=== PATIENT | male | born 1995 | race Caucasian/White ===

== ENCOUNTER 2023-10-14 21:05 | Emergency (ER) | payer MEDICAID, OTHER ==
[~2023-10-14] VITALS: Ht 170.2 cm; Wt 59.4 kg
[2023-10-14] MEDS ORDERED: AMOX-427 PO (22:50)
[2023-10-14] MEDS: AMOXICILLIN-CLAVUL 500-125MG TABLET PO ONE (22:55)
[2023-10-14] MEDS ORDERED: AMOXICILLIN-CLAVUL 500-125MG TABLET ONE (22:58)
[2023-10-14 23:20] VITALS: BP 122/70; TEMP 98; O2SAT 98
== END 2023-10-14 23:21 | disposition home or self-care (01) ==
LOC: ER 21:09
DX: L60.0 Ingrowing nail (principal); Z79.899 Other long term (current) drug therapy
CPT/HCPCS: A4606; A4663

== ENCOUNTER 2023-12-01 12:19 | Emergency (ER) | payer OTHER ==
[~2023-12-01] VITALS: Ht 172.7 cm; Wt 59.0 kg
[~2023-12-01 12:19] MED LIST: AMOX-427 PO
[2023-12-01 12:33] VITALS: O2SAT 100
[2023-12-01] MEDS ORDERED: SULF1TAB48 PO (12:59)
[2023-12-01] MEDS ORDERED: SULFAMETH/TRIMETH 800/160 MG TABLET ONE (13:01)
[2023-12-01] MEDS: SULFAMETH/TRIMETH 800/160 MG TABLET PO ONE (13:06)
== END 2023-12-01 13:08 | disposition home or self-care (01) ==
LOC: ER 12:19
DX: L02.413 Cutaneous abscess of right upper limb (principal); Z79.899 Other long term (current) drug therapy; W57.XXXA Bitten or stung by nonvenomous insect and other nonvenomous arthropods, initial encounter; Y93.89 Activity, other specified; Y92.89 Other specified places as the place of occurrence of the external cause; Y99.8 Other external cause status
CPT/HCPCS: 99283; 87070; 87075; J7040; A4606; A4663